=== PATIENT | male | born 1980 | race Caucasian/White ===

== ENCOUNTER 2019-07-31 12:51 | Outpatient (REF) | payer MEDICARE, SELFPAY ==
[2019-07-31 14:44] LABS: ALT 34 U/L (16-63); AST 19 U/L (15-37); Albumin 4.3 g/dL (3.4-5.0); Alkaline Phosphatase 71 U/L (46-116); Anion Gap 9.8 mmol/L (3-11); BUN 17 mg/dL (7-18); CO2 27.2 mmol/L (21.0-32.0); CREATININE 1.23 mg/dL (0.70-1.30); Calcium 8.9 mg/dL (8.5-10.1); Calculated LDL 113 mg/dL; Chloride 104 mmol/L (98-107); Cholesterol 172 mg/dL (50-200); Glucose 87 mg/dL (70-100); HDL Cholesterol 44 mg/dL (40-60); Potassium 4.1 mmol/L (3.5-5.1); Sodium 141 mmol/L (136-145); Total Protein 8.1 g/dL (6.4-8.2); Triglyceride 78 mg/dL (30-150)
[2019-08-03 10:09] LABS: IgA 611 mg/dL (85-499); Interpretation (See Note)
[2019-08-05 08:25] LABS: Tissue Transglutaminase IgA <1.2 U/mL (<4.0)
[2019-08-05 16:41] LABS: PSA, Screening 0.8 ng/mL (0.0-2.5)
== END 2019-07-31 13:11 ==
LOC: NCHCN 12:51
PROVIDERS: PCP Family Medicine; Visit Provider Specialist/Technologist Athletic Trainer
DX: Z12.5 Encounter for screening for malignant neoplasm of prostate (principal); Z13.6 Encounter for screening for cardiovascular disorders
CPT/HCPCS: 80053; 80061; 82784; 83516; 84153